=== PATIENT | female | born 1995 | race African-American/Black ===

== ENCOUNTER 2017-09-28 04:58 | Emergency (ER) | payer OTHER ==
[~2017-09-28] VITALS: Ht 160 cm; Wt 64.7 kg
[2017-09-28 06:42] LABS: BASOPHIL (%) 0.3 % (0-1); EOSINOPHIL (%) 0.4 % (0-5); HEMATOCRIT 37.4 % (36.0-46.0); HEMOGLOBIN 12.9 G/DL (11.9-15.5); IMMATURE GRANULOCYTE (%) 0.4 % (0.0-0.7); LYMPHOCYTE (%) 16.4 % (15-42); LYMPHOCYTE COUNT 1.7 K/uL (1.0-2.8); MCH 30.9 PG (29.0-34.0); MCHC 34.5 G/DL (30.0-36.0); MCV 89.5 FL (83-99); MONOCYTE COUNT 0.8 K/uL (0-0.8); NEUTROPHIL (%) 74.5 % (45-76); NEUTROPHIL COUNT 7.6 K/uL (1.8-6.4); PLATELET COUNT 261 K/uL (156-360); RBC DIS.WIDTH-CV 12.2 % (11.8-14.6); RBC DIS.WIDTH-SD 40.1 % (39-53); RED BLOOD COUNT 4.18 M/uL (3.80-5.20); WHITE BLOOD COUNT 10.2 K/uL (4.1-10.2)
[2017-09-28 06:50] LABS: ALBUMIN 3.9 g/dL (3.2-4.8)
[2017-09-28 06:51] LABS: CHLORIDE 105 mEq/L (99-109); POTASSIUM 3.9 mEq/L (3.7-5.4); SODIUM 133 mEq/L (136-147)
[2017-09-28 06:53] LABS: GLUCOSE 89 mg/dL (70-99); TOTAL PROTEIN 7.3 g/dL (6.4-8.3)
[2017-09-28 06:55] LABS: TOTAL BILIRUBIN 0.2 mg/dL (0.0-1.0)
[2017-09-28 06:56] LABS: ALKALINE PHOSPHATASE 70 IU/L (3-129)
[2017-09-28 06:58] LABS: AST (GOT) 15 IU/L (2-34); UREA NITROGEN (BUN) 7 mg/dL (9-23)
[2017-09-28 06:59] LABS: GFR ESTIMATE (CALCULATED) > 59 mL/min/
[2017-09-28 07:00] LABS: ALT (GPT) 9 IU/L (3-49)
[2017-09-28 07:03] LABS: APPEARANCE SL.HAZY ((CLEAR)); BILIRUBIN NEGATIVE; BLOOD MODERATE; COLOR YELLOW ((YELLOW)); GLUCOSE (STRIP) NEGATIVE; KETONES NEGATIVE; LEUKOCYTES LARGE; NITRITE NEGATIVE; PROTEIN (STRIP) NEGATIVE; SPECIFIC GRAVITY 1.014 (1.000-1.030); UROBILINOGEN 0.2 MG/DL (0.2-1.0)
[2017-09-28 07:05] LABS: QUANTITATIVE HCG < 4.0 MIU/ML
[2017-09-28 07:29] LABS: BACTERIA 1+ /HPF; EPITHELIAL CELLS 1+ /HPF; MUCUS TRACE /LPF; RED BLOOD CELLS TNTC /HPF (0-5); UCUL ADDED? YES; WHITE BLOOD CELLS TNTC /HPF (0-5)
[2017-09-28] MEDS ORDERED: TORADOL10 MG PO (09:48)
[2017-09-28 10:39] VITALS: BP 108/58
== END 2017-09-28 10:30 | disposition home or self-care (01) ==
LOC: EME 04:58
PROVIDERS: Physician Assistant
DX: N76.4 Abscess of vulva (principal); N76.0 Acute vaginitis; R11.2 Nausea with vomiting, unspecified
CPT/HCPCS: 74177; 80053; 81003; 84702; 85025; 87086; 87106; 99281; 99285; J1885; J2405; J7040